=== PATIENT | male | born 1945 | race Caucasian/White ===

== ENCOUNTER 2017-10-28 23:48 | Emergency (ER) | payer SELFPAY ==
[~2017-10-28] VITALS: Ht 172.7 cm; Wt 68.0 kg
[2017-10-28 23:51] VITALS: BP 153/77; PULSE 111; RESP 22; TEMP 98; O2SAT 99
--- NOTE | 2017-10-29 00:52 | PD ---
HPI Chief Complaint: Injury Time Seen by Provider: 00:40 Travel History International Travel<30 days: No Contact w/Intl Traveler<30days: No Traveled to known affect area: No History of Present Illness HPI 72-year-old male here with lower back pain. He reports over the past 7 months he has been experiencing right-sided lower back pain that shoots down his right leg to his foot. The pain is a sharp pain that is worse when walking. Symptoms have worsened over the past 2 days which prompted evaluation. He has not tried using any [id number] medication for symptom relief. He has not been seen for evaluation of this in the past. He denies any new injuries. Denies any abdominal pain, bowel or bladder incontinence, saddle anesthesia, fevers or chills. He has no primary care physician. No other complaints at this time. [facility] Past Medical History Diminished Hearing: No Hypertension: Yes Tetanus Vaccination: < 5 Years Influenza Vaccination: No Past Surgical History Surgical History: No Previous Surgery Social History Alcohol Use: Yes (SOCIALLY) Tobacco Use: Yes (1PPD) Substance Use: No Allergies-Medications (Allergen,Severity, Reaction): Coded Allergies: No Known Allergies (Unverified , 10/29/17) Reported Meds & Prescriptions Reported Meds & Active Scripts Active Active Prescriptions or Reported Medications Unobtainable Review of Systems Except as stated in HPI: all other systems reviewed are Neg Physical Exam Narrative GENERAL: Well-nourished male in no acute distress SKIN: Warm and dry. HEAD: Atraumatic. Normocephalic. EYES: Pupils equal and round. No scleral icterus. No injection or drainage. ENT: No nasal bleeding or discharge. Mucous membranes pink and moist. NECK: Trachea midline. No JVD. CARDIOVASCULAR: Regular rate and rhythm. No murmur appreciated. RESPIRATORY: No accessory muscle use. Clear to auscultation. Breath sounds equal bilaterally. GASTROINTESTINAL: Abdomen soft, non-tender, nondistended. Hepatic and splenic margins not palpable. MUSCULOSKELETAL: No obvious deformities. Tender to palpation right lumbar paravertebral musculature. No CVA tenderness. No lower extremity edema. Negative Homans. No appreciable tenderness to palpation to the legs. 2+ dorsalis pedis and posterior tibial pulses bilaterally. 5 out of 5 muscle strength in the lower extremity muscle groups bilaterally. NEUROLOGICAL: Awake and alert. No obvious cranial nerve deficits. Motor grossly within normal limits. Normal speech. PSYCHIATRIC: Appropriate mood and affect; insight and judgment normal. Data Data Last Documented VS Vital Signs Date Time Temp Pulse Resp B/P (MAP) Pulse Ox O2 Delivery O2 Flow Rate FiO2 10/29/17 00:40 15 97 Room Air 10/28/17 23:51 98.0 111 153/77 (102) Orders Orders Spine, Lumbar - Ltd (Ap & Lat) (10/29/17 ) Naproxen (Naprosyn) (10/29/17 01:00) Ed Discharge Order (10/29/17 01:53) MDM Medical Decision Making Medical Screen Exam Complete: Yes Emergency Medical Condition: Yes Medical Record Reviewed: Yes Differential Diagnosis Herniated nucleus pulposus, piriformis syndrome, compression fracture, claudication, DVT Narrative Course Physical examination is reassuring. He is been experienced in his pain for 7 months. Given duration of symptoms, age, lumbar spine x-ray has been ordered. Naproxen administered. X-ray imaging reveals degenerative changes in no acute abnormalities. I suspect lumbosacral radiculopathy as etiology of his symptoms. He felt significant improvement with the administration of a routine dose of Naprosyn and so suspect he will do well with [id number] NSAIDs or Tylenol as needed. He is stable for discharge. Diagnosis Primary Impression: Lumbosacral radiculopathy Additional Instructions: Use [id number] naproxen or Tylenol for pain per dosing instructions on the bottle. Follow-up close with primary care physician and return for any emergent medical conditions. Med/Other Pt SpecificInfo: No Change to Meds Scripts Unable to Obtain Active Prescriptions or Reported Meds Disposition: DISCHARGE HOME Condition: Stable Kody Gardner Oct 29, 2017 00:52
[2017-10-29] MEDS ORDERED: NAPROXEN 500 MG TAB PO ONE (01:00)
--- NOTE | 2017-10-29 01:33 | RADRPT ---
EXAM DATE/TIME: 10/29/2017 01:10 [facility] COMPARISON: No previous studies available for comparison. INDICATIONS : Lower back pain from unknown injury. MEDICAL HISTORY : None. SURGICAL HISTORY : None. ENCOUNTER: Initial ACUITY: 1 day PAIN SCORE: 6/10 LOCATION: Bilateral lower back. FINDINGS: No appreciable spondylolisthesis, or spondylolysis is seen. There is mild reduction in height L1, L2 and L3 vertebrae chronic in nature. Moderate degenerative changes are seen within the disc space and facets. Chronic atherosclerotic calcifications are seen without any definite aneurysmal dilatations for technique. CONCLUSION: Chronic changes. KNerissa Boone MD on October 29, 2017 at 1:30 Board Certified Radiologist. This report was verified electronically.
== END 2017-10-29 02:09 | disposition home or self-care (01) ==
LOC: NEPD 23:48
DX: M54.16 Radiculopathy, lumbar region (principal); I10 Essential (primary) hypertension; F17.200 Nicotine dependence, unspecified, uncomplicated
CPT/HCPCS: 72100; 99283